=== PATIENT | female | born 1945 | race Caucasian/White ===

== ENCOUNTER 2016-07-16 03:53 | Emergency (ER) | payer OTHER ==
[~2016-07-16] VITALS: Ht 160 cm; Wt 97.2 kg
[~2016-07-16 03:53] MED LIST: ADVAIR 100/501 DISK IH; ALBUTEROL17 GM IH; ALLOPURINOL300 MG PO; ASPIRIN81 M1 PO; Advair HFA 45/21 IH; BUMETANIDE2 MG PO; CELEBREX200 MG PO; CIPRO500 MG PO; COLACE100 MG PO; CYMBALTA30 MG PO; DARVOCET-N 51 TABLET PO; DIOVAN HCT 11 TABLET PO; DIOVAN HCT 1601 EACH PO; K-DUR20 MEQ PO; KADIAN100 MG PO; KADIAN60 MG PO; KLOR-CON M2020 MEQ PO; KLOR-CON20 MEQ PO; LASIX40 MG PO; LEVOTHROID50 MCG PO; LIPITOR80 MG PO; LO-DOSE ASPIRIN81 M1 PO; METOLAZONE5 MG PO; MIRALAX17 GM PO; MS CONTIN,ORAMO60 MG PO; MS CONTIN100 MG PO; MUCINEX DM ER1 EACH PO; MYRBETRIQ25 MG PO; NEXIUM40 MG PO; PREMARIN1.25 MG PO; PROVENTIL,2.5 MG/3 M IH; SEROQUEL200 MG PO; SEROquel PO; SYNTHROID75 MCG PO; TYLENOL EXTRA500 MG PO; Vicodin,Norco 5/325 PO; XANAX0.125 MG PO; XANAX0.25 MG PO; ZETIA10 MG PO; ZOLOFT100 MG PO; ZYLOPRIM300 MG PO
[2016-07-16] MEDS ORDERED: OMEPRAZOLE40 M1 PO (04:16)
[2016-07-16 04:30] LABS: EOSINOPHIL (%) 0.3 % (0-5); HEMATOCRIT 31.9 % (36.0-46.0); IMMATURE GRANULOCYTE (%) 0.4 % (0.0-0.7); IMMATURE GRANULOCYTE COUNT 0.1 K/uL; INSTRUMENT ABS NEUTROPHIL CT 11.5 K/uL; LYMPHOCYTE COUNT 1.8 K/uL (1.0-2.8); MCH 30.5 PG (29.0-34.0); MCHC 33.9 G/DL (30.0-36.0); MCV 90.1 FL (83-99); MEAN PLAT.VOLUME 9.6 uM^3 (9.5-12.4); MONOCYTE (%) 5.9 % (3-12); MONOCYTE COUNT 0.8 K/uL (0-0.8); NEUTROPHIL (%) 80.9 % (45-76); NEUTROPHIL COUNT 11.5 K/uL (1.8-6.4); PLATELET COUNT 305 K/uL (156-360); RBC DIS.WIDTH-CV 13.3 % (11.8-14.6); RBC DIS.WIDTH-SD 44.2 % (39-53); RED BLOOD COUNT 3.54 M/uL (3.80-5.20); WHITE BLOOD COUNT 14.2 K/uL (4.1-10.2)
[2016-07-16 04:41] LABS: CHLORIDE 103 mEq/L (99-109); POTASSIUM 2.7 mEq/L (3.7-5.4); SODIUM 139 mEq/L (136-147)
[2016-07-16 04:43] LABS: GLUCOSE 177 mg/dL (70-99)
[2016-07-16 04:44] LABS: ANION GAP 13 MEQ/L (2-14)
[2016-07-16 04:45] LABS: TOTAL BILIRUBIN 0.5 mg/dL (0.0-1.0)
[2016-07-16 04:46] LABS: ALKALINE PHOSPHATASE 86 IU/L (3-129)
[2016-07-16 04:47] LABS: GFR ESTIMATE (CALCULATED) > 59 mL/min/
[2016-07-16 04:48] LABS: UREA NITROGEN (BUN) 24 mg/dL (9-23)
[2016-07-16 04:50] LABS: LIPASE 28 U/L (1.0-51.0)
[2016-07-16 04:51] LABS: TROP-I INTERPRETATION NEGATIVE; TROPONIN-I < 0.01 ng/mL (0.0-0.30)
[2016-07-16] MEDS ORDERED: ZOFRAN ODT4 MG PO (05:08)
[2016-07-16 05:23] LABS: ADD MIUA? YES; BILIRUBIN NEGATIVE; BLOOD NEGATIVE; COLOR YELLOW ((YELLOW)); GLUCOSE (STRIP) NEGATIVE; KETONES NEGATIVE; LEUKOCYTES TRACE; NITRITE NEGATIVE; PROTEIN (STRIP) NEGATIVE; SPECIFIC GRAVITY 1.012 (1.000-1.030); UROBILINOGEN 0.2 MG/DL (0.2-1.0)
[2016-07-16 05:36] LABS: BACTERIA RARE /HPF; EPITHELIAL CELLS 2+ /HPF; MUCUS TRACE /LPF; RED BLOOD CELLS 0-5 /HPF (0-5); UCUL ADDED? NO; WHITE BLOOD CELLS 0-5 /HPF (0-5)
[2016-07-16 09:23] VITALS: BP 131/70
== END 2016-07-16 09:24 | disposition home or self-care (01) ==
LOC: EME 03:53
PROVIDERS: Emergency Medicine
DX: R11.2 Nausea with vomiting, unspecified (principal); R19.7 Diarrhea, unspecified; I10 Essential (primary) hypertension; G89.29 Other chronic pain; J44.9 Chronic obstructive pulmonary disease, unspecified; E03.9 Hypothyroidism, unspecified; Z96.652 Presence of left artificial knee joint; Z90.710 Acquired absence of both cervix and uterus; Z90.49 Acquired absence of other specified parts of digestive tract; Z79.891 Long term (current) use of opiate analgesic; Z79.82 Long term (current) use of aspirin; Z87.891 Personal history of nicotine dependence
CPT/HCPCS: 80053; 81003; 83690; 84484; 85025; 93005; 99281; 99285; J2405; J3010; J7030

== ENCOUNTER 2017-04-20 18:23 | Observation (INO) | payer OTHER ==
[~2017-04-20] VITALS: Ht 157.5 cm; Wt 94.3 kg
[~2017-04-20 18:23] MED LIST changes: +CYMBALTA60 MG PO; +OMEPRAZOLE40 M1 PO; +SYNTHROID100 MCG PO; +ZOFRAN ODT4 MG PO
[2017-04-20 19:48] LABS: BASOPHIL (%) 0.2 % (0-1); EOSINOPHIL (%) 0.1 % (0-5); HEMATOCRIT 36.2 % (36.0-46.0); HEMOGLOBIN 12.3 G/DL (11.9-15.5); IMMATURE GRANULOCYTE (%) 0.5 % (0.0-0.7); LYMPHOCYTE (%) 11.1 % (15-42); LYMPHOCYTE COUNT 1.6 K/uL (1.0-2.8); MCH 31.4 PG (29.0-34.0); MCV 92.3 FL (83-99); MONOCYTE COUNT 0.4 K/uL (0-0.8); NEUTROPHIL (%) 85.1 % (45-76); NEUTROPHIL COUNT 11.9 K/uL (1.8-6.4); PLATELET COUNT 318 K/uL (156-360); RBC DIS.WIDTH-CV 13.1 % (11.8-14.6); RBC DIS.WIDTH-SD 43.8 % (39-53); RED BLOOD COUNT 3.92 M/uL (3.80-5.20)
[2017-04-20 19:57] LABS: CHLORIDE 106 mEq/L (99-109); POTASSIUM 3.7 mEq/L (3.7-5.4); SODIUM 142 mEq/L (136-147)
[2017-04-20 19:59] LABS: GLUCOSE 190 mg/dL (70-99); TOTAL PROTEIN 7.3 g/dL (6.4-8.3)
[2017-04-20 20:01] LABS: TOTAL BILIRUBIN 0.3 mg/dL (0.0-1.0)
[2017-04-20 20:02] LABS: ALKALINE PHOSPHATASE 101 IU/L (3-129)
[2017-04-20 20:03] LABS: CREATININE 1.1 mg/dL (0.6-1.3); GFR ESTIMATE (CALCULATED) 52 mL/min/
[2017-04-20 20:04] LABS: AST (GOT) 13 IU/L (2-34); UREA NITROGEN (BUN) 20 mg/dL (9-23)
[2017-04-20 20:05] LABS: ALT (GPT) 12 IU/L (3-49)
[2017-04-20 20:06] LABS: LIPASE 35 U/L (1.0-51.0)
[2017-04-20 20:08] LABS: TROP-I INTERPRETATION NEGATIVE; TROPONIN-I < 0.01 ng/mL (0.0-0.30)
[2017-04-20 21:34] LABS: APPEARANCE SL.HAZY ((CLEAR)); BILIRUBIN NEGATIVE; BLOOD NEGATIVE; COLOR YELLOW ((YELLOW)); GLUCOSE (STRIP) NEGATIVE; KETONES NEGATIVE; LEUKOCYTES LARGE; NITRITE POSITIVE; PROTEIN (STRIP) NEGATIVE; SPECIFIC GRAVITY 1.023 (1.000-1.030); UROBILINOGEN 0.2 MG/DL (0.2-1.0)
[2017-04-20 21:51] LABS: BACTERIA RARE /HPF; EPITHELIAL CELLS RARE /HPF; HYALINE CASTS 0-5 /LPF; MUCUS TRACE /LPF; RED BLOOD CELLS 0-5 /HPF (0-5); UCUL ADDED? YES; WHITE BLOOD CELLS 40-50 /HPF (0-5)
[2017-04-20] MEDS ORDERED: NARCAN4 MG NS (23:48)
[2017-04-20] MEDS ORDERED: ZOFRAN ODT4 MG PO (23:48)
[2017-04-20] MEDS ORDERED: EMBEDA ER 60-21 EACH PO (23:49)
[2017-04-20] MEDS ORDERED: DICLOFENAC SOD100 G1 TP (23:50)
[2017-04-21 01:55] VITALS: BP 114/59
[2017-04-21 06:21] LABS: HEMATOCRIT 30.6 % (36.0-46.0); MCH 31.1 PG (29.0-34.0); MCHC 33.7 G/DL (30.0-36.0); MCV 92.4 FL (83-99); PLATELET COUNT 275 K/uL (156-360); RBC DIS.WIDTH-CV 13.2 % (11.8-14.6); RBC DIS.WIDTH-SD 44.2 % (39-53); RED BLOOD COUNT 3.31 M/uL (3.80-5.20); WHITE BLOOD COUNT 13.2 K/uL (4.1-10.2)
[2017-04-21 06:22] LABS: HEMOGLOBIN 10.3 G/DL (11.9-15.5)
[2017-04-21 06:31] LABS: CHLORIDE 105 MEQ/L (99-109); CREATININE 0.9 MG/DL (0.6-1.3); GFR ESTIMATE (CALCULATED) > 59 mL/min/; SODIUM 143 MEQ/L (136-147); UREA NITROGEN (BUN) 17 mg/dL (9-23)
[2017-04-21 06:32] LABS: GLUCOSE 119 mg/dL (70-99); POTASSIUM 2.9 MEQ/L (3.7-5.4)
[2017-04-21 07:58] VITALS: BP 120/59
[2017-04-21 09:57] LABS: MAGNESIUM 1.2 mg/dl (1.3-2.7)
[2017-04-21 12:38] VITALS: BP 137/87
[2017-04-21 16:00] VITALS: BP 124/81
[2017-04-21 21:30] VITALS: BP 126/60
[2017-04-21 23:49] VITALS: BP 161/73
[2017-04-22 04:29] VITALS: BP 134/64
[2017-04-22 05:31] LABS: BASOPHIL (%) 0.5 % (0-1); BASOPHIL COUNT 0.1 K/uL (0-0.1); EOSINOPHIL (%) 1.3 % (0-5); EOSINOPHIL COUNT 0.2 K/uL (0-0.3); HEMATOCRIT 31.3 % (36.0-46.0); HEMOGLOBIN 10.2 G/DL (11.9-15.5); IMMATURE GRANULOCYTE (%) 0.5 % (0.0-0.7); LYMPHOCYTE (%) 37.1 % (15-42); LYMPHOCYTE COUNT 4.3 K/uL (1.0-2.8); MCH 30.4 PG (29.0-34.0); MCHC 32.6 G/DL (30.0-36.0); MCV 93.2 FL (83-99); MONOCYTE (%) 6.3 % (3-12); MONOCYTE COUNT 0.7 K/uL (0-0.8); NEUTROPHIL (%) 54.3 % (45-76); NEUTROPHIL COUNT 6.3 K/uL (1.8-6.4); PLATELET COUNT 270 K/uL (156-360); RBC DIS.WIDTH-CV 13.2 % (11.8-14.6); RBC DIS.WIDTH-SD 44.1 % (39-53); RED BLOOD COUNT 3.36 M/uL (3.80-5.20); WHITE BLOOD COUNT 11.7 K/uL (4.1-10.2)
[2017-04-22 05:58] LABS: CHLORIDE 106 MEQ/L (99-109); CREATININE 0.8 MG/DL (0.6-1.3); GFR ESTIMATE (CALCULATED) > 59 mL/min/; GLUCOSE 109 mg/dL (70-99); MAGNESIUM 1.4 mg/dl (1.3-2.7); POTASSIUM 3.8 MEQ/L (3.7-5.4); SODIUM 141 MEQ/L (136-147); UREA NITROGEN (BUN) 15 mg/dL (9-23)
[2017-04-22 07:10] VITALS: BP 144/65
[2017-04-22] MEDS ORDERED: CEFTIN500 MG PO (10:49)
== END 2017-04-22 12:14 | disposition home or self-care (01) ==
LOC: EME 18:23 → EDOF 04-21 00:40 → 5WEST 04-21 00:40 → ENRESERV 04-21 00:49 → 5WEST 04-21 01:38
PROVIDERS: Emergency Medicine; Hospitalist; Internal Medicine
DX: K52.9 Noninfective gastroenteritis and colitis, unspecified (principal); E87.6 Hypokalemia; E83.42 Hypomagnesemia; F11.23 Opioid dependence with withdrawal; T40.2X5A Adverse effect of other opioids, initial encounter; F41.9 Anxiety disorder, unspecified; G89.29 Other chronic pain; M54.9 Dorsalgia, unspecified; E11.9 Type 2 diabetes mellitus without complications; I10 Essential (primary) hypertension; Z98.1 Arthrodesis status; N39.0 Urinary tract infection, site not specified; D50.9 Iron deficiency anemia, unspecified; J45.909 Unspecified asthma, uncomplicated; E03.9 Hypothyroidism, unspecified; E78.5 Hyperlipidemia, unspecified; M10.9 Gout, unspecified; K21.9 Gastro-esophageal reflux disease without esophagitis; Z87.11 Personal history of peptic ulcer disease; K44.9 Diaphragmatic hernia without obstruction or gangrene; R91.1 Solitary pulmonary nodule; N28.1 Cyst of kidney, acquired; K57.30 Diverticulosis of large intestine without perforation or abscess without bleeding; Z87.891 Personal history of nicotine dependence; Z90.49 Acquired absence of other specified parts of digestive tract; Z90.710 Acquired absence of both cervix and uterus; Z80.1 Family history of malignant neoplasm of trachea, bronchus and lung; Z82.3 Family history of stroke
CPT/HCPCS: 71045; 74177; 80048; 80053; 81003; 82948; 83690; 83735; 84484; 85025; 85027; 87077; 87086; 87186; 87493; 87506; 94640; 94640 76; 99202; 99281; 99285; G0378; J0500; J0696; J1644; J1815; J2270; J2405; J2765; J3475; J3480; J7030; J7040

== ENCOUNTER 2017-08-25 19:38 | Emergency (ER) | payer OTHER ==
[~2017-08-25] VITALS: Ht 160 cm; Wt 105.0 kg
[~2017-08-25 19:38] MED LIST changes: +CEFTIN500 MG PO; +DICLOFENAC SOD100 G1 TP; +EMBEDA ER 60-21 EACH PO; +NARCAN4 MG NS
[2017-08-25] MEDS ORDERED: EMBEDA ER 30-11 EACH PO (19:50)
[2017-08-25 21:46] LABS: HEMATOCRIT 35.2 % (36.0-46.0); HEMOGLOBIN 12.1 G/DL (11.9-15.5); MCH 31.6 PG (29.0-34.0); MCHC 34.4 G/DL (30.0-36.0); MCV 91.9 FL (83-99); PLATELET COUNT 365 K/uL (156-360); RBC DIS.WIDTH-CV 13.1 % (11.8-14.6); RBC DIS.WIDTH-SD 43.4 % (39-53); RED BLOOD COUNT 3.83 M/uL (3.80-5.20); WHITE BLOOD COUNT 14.2 K/uL (4.1-10.2)
[2017-08-25 21:55] LABS: CHLORIDE 97 mEq/L (99-109); POTASSIUM 3.2 mEq/L (3.7-5.4); SODIUM 140 mEq/L (136-147)
[2017-08-25 21:57] LABS: GLUCOSE 133 mg/dL (70-99)
[2017-08-25 22:01] LABS: CREATININE 1.1 mg/dL (0.6-1.3); GFR ESTIMATE (CALCULATED) 52 mL/min/
[2017-08-25 22:02] LABS: UREA NITROGEN (BUN) 45 mg/dL (9-23)
[2017-08-25 22:27] VITALS: BP 127/75
== END 2017-08-25 22:27 | disposition home or self-care (01) ==
LOC: EME 19:38
PROVIDERS: Emergency Medicine
DX: S00.83XA Contusion of other part of head, initial encounter (principal); M25.561 Pain in right knee; W01.0XXA Fall on same level from slipping, tripping and stumbling without subsequent striking against object, initial encounter; I10 Essential (primary) hypertension; J43.9 Emphysema, unspecified; E11.9 Type 2 diabetes mellitus without complications; K21.9 Gastro-esophageal reflux disease without esophagitis; F32.9 Major depressive disorder, single episode, unspecified; Z96.652 Presence of left artificial knee joint; Z79.82 Long term (current) use of aspirin; Z87.891 Personal history of nicotine dependence; Z91.040 Latex allergy status; D64.9 Anemia, unspecified
CPT/HCPCS: 70450; 72125; 73564; 80048; 85027; 99281; 99285